=== PATIENT | male | born 1995 ===

== ENCOUNTER 2017-08-03 12:23 | Emergency (ER) | payer SELFPAY ==
[~2017-08-03] VITALS: Ht 177.8 cm; Wt 76.4 kg
[2017-08-03 12:25] VITALS: BP 122/76; PULSE 86; RESP 16; TEMP 99.4; O2SAT 98
[2017-08-03] MEDS ORDERED: BENZ100 PO (13:34)
[2017-08-03] MEDS ORDERED: OSEL75 PO (13:34)
--- NOTE | 2017-08-03 13:34 | PD ---
HPI Chief Complaint: ENT Complaint Time Seen by Provider: 12:56 Travel History International Travel<30 days: No Contact w/Intl Traveler<30days: No Traveled to known affect area: No History of Present Illness HPI This is a 22-year-old male here with fever, body aches, sore throat, cough times one day. He reports exposure to the flu. Reports fever of 102 prior to arrival. Symptoms severity is moderate. No aggravating or alleviating factors. PFSH Past Medical History Medical History: Denies Significant Hx Social History Tobacco Use: No Allergies-Medications Reported Meds & Prescriptions Reported Meds & Active Scripts Active Tessalon Perles (Benzonatate) 100 Mg Cap 100 Mg PO TID PRN Tamiflu (Oseltamivir Phosphate) 75 Mg Cap 75 Mg PO BID 5 Days Review of Systems General / Constitutional: Positive: Fever Eyes: No: Visual changes HENT: Positive: Congestion, No: Headaches Cardiovascular: No: Chest Pain or Discomfort Respiratory: Positive: Cough Gastrointestinal: No: Abdominal Pain Genitourinary: No: Dysuria Musculoskeletal: Positive: Myalgias Skin: No Rash Physical Exam Narrative GENERAL: Alert and nontoxic-appearing 22-year-old male SKIN: Warm and dry. No rash HEAD: Normocephalic. EYES: Pupils equal, round, reactive to light. No injection or drainage. Ear/nose/throat: Mild pharyngeal erythema without tonsillar hypertrophy or exudate. There is midline. Airway is patent. NECK: Supple, trachea midline. No JVD or lymphadenopathy. CARDIOVASCULAR: Regular rate and rhythm RESPIRATORY: Breath sounds equal bilaterally. No accessory muscle use. GASTROINTESTINAL: Abdomen soft, non-tender, nondistended. MUSCULOSKELETAL: No cyanosis, or edema. BACK: Nontender without obvious deformity. No CVA tenderness. Data Data Last Documented VS Vital Signs Date Time Temp Pulse Resp B/P (MAP) Pulse Ox O2 Delivery O2 Flow Rate FiO2 08/03/17 14:12 08/03/17 12:25 99.4 86 16 98 Orders Orders Ed Discharge Order (08/03/17 13:45) MDM Medical Decision Making Medical Screen Exam Complete: Yes Emergency Medical Condition: Yes Differential Diagnosis Influenza, other viral illness, URI Narrative Course 22-year-old male here with flulike symptoms. Reported max temp of 102. Reports exposure to influenza. He is nontoxic appearing. His vital signs are stable. He'll be treated with Tamiflu Diagnosis Primary Impression: Influenza Referrals: [facility] Additional Instructions: Stay well hydrated by drinking plenty of fluids. Ibuprofen as needed for fever and body pain. Tylenol as needed for fever and body pain. Scripts Benzonatate (Tessalon Perles) 100 Mg Cap 100 MG PO TID Y for COUGH, #14 CAP 0 Refills Prov: Tawanna Pang 08/03/17 Oseltamivir (Tamiflu) 75 Mg Cap 75 MG PO BID for Mgmt Viral Infection for 5 Days, #10 CAP 0 Refills Prov: Tawanna Pang 08/03/17 Disposition: 01 DISCHARGE HOME Condition: Stable Tawanna Pang Aug 03, 2017 13:34
== END 2017-08-03 14:13 | disposition home or self-care (01) ==
LOC: NEPK 12:23
DX: J11.1 Influenza due to unidentified influenza virus with other respiratory manifestations (principal); R50.9 Fever, unspecified; M79.1 Myalgia; R05 Cough
CPT/HCPCS: 99284